=== PATIENT | female | born 1995 | race Caucasian/White ===

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

== ENCOUNTER 2020-06-17 14:01 | Inpatient (IN) | payer OTHER ==
[~2020-06-17] VITALS: Ht 172.7 cm; Wt 72.1 kg
[2020-06-17 14:39] LABS: HEMOGLOBIN 11.6 gm/dl (12.3-15.3); RED BLOOD COUNT 4.36 M/UL (4.00-5.10); WHITE BLOOD COUNT 8.4 K/UL (4.5-11.0)
[2020-06-17] MEDS ORDERED: DOCUSATE SODIU250 MG PO (19:03)
[2020-06-17] MEDS ORDERED: IBUPROFEN600 MG PO (19:03)
[2020-06-18 06:38] LABS: HEMOGLOBIN 10.1 gm/dl (12.3-15.3)
== END 2020-06-19 13:43 | disposition home or self-care (01) | DRG 807 ==
LOC: GENOP 14:01 → OB 15:23
PROVIDERS: Obstetrics & Gynecology; ADMIT Obstetrics & Gynecology
PROC: 10E0XZZ Delivery of Products of Conception, External Approach (ICD-10-PCS; principal; 2020-06-17)
PROC: 10907ZC Drainage of Amniotic Fluid, Therapeutic from Products of Conception, Via Natural or Artificial Opening (ICD-10-PCS; 2020-06-17)
PROC: 0UQMXZZ Repair Vulva, External Approach (ICD-10-PCS; 2020-06-17)
DX: O99.62 Diseases of the digestive system complicating childbirth (principal); Z37.0 Single live birth; K92.89 Other specified diseases of the digestive system; Z3A.38 38 weeks gestation of pregnancy; Z28.21 Immunization not carried out because of patient refusal; O99.344 Other mental disorders complicating childbirth; F41.9 Anxiety disorder, unspecified; F32.9 Major depressive disorder, single episode, unspecified; O99.52 Diseases of the respiratory system complicating childbirth; J45.909 Unspecified asthma, uncomplicated
CPT/HCPCS: 36415; 51702; 81001; 82800; 85014; 85018; 85025; 87635; J2590; J2795; J7120